=== PATIENT | female | born 1965 | race Caucasian/White ===

== ENCOUNTER 2024-11-24 18:49 | Emergency (ER) | payer OTHER, SELFPAY ==
--- NOTE | ~2024-11-24 | XR_ITS ---
CLINICAL HISTORY: shortness of breath EXAM: Two views of the chest. COMPARISON: None FINDINGS: Normal cardiac, mediastinal, and hilar contours. Normal heart size. No pleural effusion or pneumothorax. Lungs are clear. No acute bone finding. IMPRESSION: 1. No acute cardiopulmonary process demonstrated. This document has been electronically signed by: Gomez Bowles MD on 11/24/2024 19:27:01
[2024-11-24 18:53] VITALS: BP 171/95; PULSE 91; RESP 20; TEMP 36.8; O2SAT 99; BMI 31.0
--- NOTE | 2024-11-24 18:54 | ED.GENADULT ---
HPI - General Adult General Chief complaint: Dyspnea Stated complaint: lungs crackling something stuck in throat Time Seen by Provider: 11/24/24 19:27 Related Data Previous Rx's ?Medication ?Instructions ?Recorded doxycycline monohydrate 100 mg 100 mg PO BID 7 days #14 caps 11/24/24 capsule Allergies Allergy/AdvReac Type Severity Reaction Status Date / Time No Known Allergies Allergy Verified 11/24/24 18:55 [facility] Social History Social History (System 02/05/24 @ 12:30 by Angela Chamorro) Smoked in Last 30 Days: No Use of substances other than those prescribed or required for medical reasons: No Advance Directives: No Advance Directives Information Provided: No Do you have a plan to hurt others: No Plan Physical Exam ED Vital Signs: Vital Signs - 24 hr 11/24/24 18:53 11/24/24 20:17 Temperature 98.3 F Pulse Rate 91 90 Respiratory Rate 20 16 Blood Pressure 171/95 H 146/78 H Pulse Oximetry 99 100 Oxygen Delivery Method Room Air Room Air BMI result Body Mass Index 31.0 Course Course Course Narrative: RME, this is a rapid medical exam performed by Oliver Plunkett please refer to primary provider for complete H&P- 59-year-old female presents for evaluation of increasing shortness of breath for the last 2 weeks. She hears a crackling in her lungs and is concerned that she has flu. No fever Medical Decision Making Lab Data 11/24/24 19:31 11/24/24 19:31 Labs: Lab Results 11/24/24 11/24/24 Range/Units 19:31 19:36 WBC 5.9 (4.8-10.8) X10*3/uL RBC 4.08 L (4.20-5.50) X10*6/uL Hgb 12.7 (12.0-16.0) g/dl Hct 37.5 (37.0-47.0) % MCV 91.9 (80.0-98.0) fL MCH 31.1 (27.0-33.0) pg MCHC 33.9 (31.0-35.0) g/dl RDW 13.2 (11.0-16.0) % Plt Count 285 (160-400) X10*3/uL MPV 9.3 L (9.4-12.3) fL Immature Gran % (Auto) 0.2 (0.0-0.4) % Neut % (Auto) 65.2 (45-73) % Lymph % (Auto) 25.2 (20-40) % [place] % (Auto) 7.7 (2-11) % Eos % (Auto) 1.2 (0-4) % Baso % (Auto) 0.5 (0-2) % Lymph # (Auto) 1.5 (1.2-4.9) X10*3/uL [place] # (Auto) 0.5 (0.1-1.2) X10*3/uL Eos # (Auto) 0.1 (0.0-0.4) X10*3/uL Baso # (Auto) 0.0 (0.0-0.2) X10*3/uL Abs Immat Gran (auto) 0.01 (0.00-0.03) X10*3/uL Absolute Neuts (auto) 3.8 (2.0-8.3) x10*3/uL Absolute Nucleated RBC 0.000 (0.0-0.012) X10*3/uL Nucleated RBC % (auto) 0.0 (0.0-0.2) /100WBC Sodium 137 (135-145) mmol/L Potassium 4.2 (3.3-5.1) mmol/L Chloride 104 (96-108) mmol/L Carbon Dioxide 24 (22-29) mmol/L Anion Gap 13 (12-20) BUN 13 (9-16) mg/dL Creatinine 0.68 (0.5-1.4) mg/dL Estim Creat Clear Calc 76.8 Estimated GFR > 60 Random Glucose 161 H (60-115) mg/dL Calcium 8.9 (8.4-10.2) mg/dL Total Bilirubin 0.4 (0.0-1.0) mg/dL AST 62 H (5-31) U/L ALT 129 H (0-31) U/L Alkaline Phosphatase 149 H (39-117) U/L B-Natriuretic Peptide 17 (<100) pg/mL Total Protein 7.3 (6.5-8.0) g/dL Albumin 4.2 (3.5-5.0) g/dL Lipase 10 (8-78) U/L Influenza Type A (PCR) NEGATIVE (Negative) Influenza Type B (PCR) NEGATIVE (Negative) RSV RNA Qual (PCR) NEGATIVE (Negative) SARS-CoV-2 RNA (RT-PCR) NEGATIVE (Negative) S. pyogenes GrpA JUSTUS Negative (Negative) Discharge Plan Discharge Clinical Impression: Elevated LFTs, Bronchitis Patient Disposition: Home, Self-Care Additional Instructions: as we discussed your blood work was essentially normal your liver function tests were a little bit elevated, your blood sugar was also a tiny bit elevated you will need to check both blood sugar and liver function tests with your primary care physician or clinic. Your chest x-ray was normal we are going to treat you has a possible bronchitis with a p.o. antibiotic. Prescriptions: New doxycycline monohydrate 100 mg capsule 100 mg PO BID 7 Days Qty: 14 0RF Referrals: Physician,None [Primary Care Provider, Medical] Print Language: Syriac
[2024-11-24 19:40] LABS: MANUAL DIFF FLAG NO
[2024-11-24 19:41] LABS: Hematocrit 37.5 % (37.0-47.0); Hemoglobin 12.7 g/dl (12.0-16.0); Imm Gran Abs Auto 0.01 X10*3/uL (0.00-0.03); Imm Gran Pct Auto 0.2 % (0.0-0.4); Lymphocytes Absolute Auto 1.5 X10*3/uL (1.2-4.9); Mean Corpuscular HGB Conc 33.9 g/dl (31.0-35.0); Mean Corpuscular Hemoglobin 31.1 pg (27.0-33.0); Mean Corpuscular Volume 91.9 fL (80.0-98.0); NRBC Abs Auto 0.000 X10*3/uL (0.0-0.012); NRBC Pct Auto 0.0 /100WBC (0.0-0.2); Platelet Count 285 X10*3/uL (160-400); Red Blood Count 4.08 X10*6/uL (4.20-5.50); White Blood Count 5.9 X10*3/uL (4.8-10.8)
[2024-11-24 19:48] LABS: IDNOW Serial# 58CA691E; Strep A Nucleic Acid Negative (Negative)
[2024-11-24 19:58] LABS: Alanine Aminotransferase 129 U/L (0-31); Albumin Level 4.2 g/dL (3.5-5.0); Alkaline Phosphatase 149 U/L (39-117); Anion Gap 13 (12-20); Aspartate Amino Transferase 62 U/L (5-31); Blood Urea Nitrogen 13 mg/dL (9-16); Calcium 8.9 mg/dL (8.4-10.2); Carbon Dioxide 24 mmol/L (22-29); Chloride 104 mmol/L (96-108); Creatinine Clr Calc Pharmacy 76.8; Estimated Glomerular Filt Rate > 60; Lipase 10 U/L (8-78); Potassium 4.2 mmol/L (3.3-5.1); Sodium 137 mmol/L (135-145); Total Protein 7.3 g/dL (6.5-8.0)
[2024-11-24 20:03] LABS: B Type Natriuretic Peptide 17 pg/mL (<100)
--- NOTE | 2024-11-24 20:04 | ED.GENADULT ---
HPI - General Adult General Chief complaint: Dyspnea Stated complaint: lungs crackling something stuck in throat Time Seen by Provider: 11/24/24 19:27 Source: patient Mode of arrival: ambulatory Limitations: no limitations History of Present Illness HPI narrative: This is 59 years old the patient presented to the emergency department multiple complaint main complaint is generalized weakness, chills throat discomfort some shortness of breath and dry cough. Patient denies any major medical problems she does not smoke. No chest pain no exertional symptoms Onset (ago): week(s) (2) Radiation: non-radiation Severity: mild Quality: burning Relieving factors: none Exacerbating factors: none Associated symptoms: denies other symptoms Related Data Previous Rx's ?Medication ?Instructions ?Recorded doxycycline monohydrate 100 mg 100 mg PO BID 7 days #14 caps 11/24/24 capsule Allergies Allergy/AdvReac Type Severity Reaction Status Date / Time No Known Allergies Allergy Verified 11/24/24 18:55 Review of Systems Constitutional: Constitutional: Reports body ache(s), Reports fatigue and Reports malaise ENT: Reports system reviewed and no additional complaints, except as documented Respiratory: Respiratory: Reports as per HPI Endocrine: Endocrine: Reports fatigue [facility] Past Medical History Attestation statement: The following information was validated with the patient. [facility] Narrative: patient denies any major medical problems Social History Social History (System 02/05/24 @ 12:30 by Angela Chamorro) Smoked in Last 30 Days: No Use of substances other than those prescribed or required for medical reasons: No Advance Directives: No Advance Directives Information Provided: No Do you have a plan to hurt others: No Plan Physical Exam ED Vital Signs: Vital Signs - 24 hr 11/24/24 18:53 11/24/24 20:17 Temperature 98.3 F Pulse Rate 91 90 Respiratory Rate 20 16 Blood Pressure 171/95 H 146/78 H Pulse Oximetry 99 100 Oxygen Delivery Method Room Air Room Air BMI result Body Mass Index 31.0 on exam she looks well she is not toxic-appearing interactive she has stable vital signs Const General: cooperative Nutritional Appearance: average body habitus Orientation/consciousness: patient oriented x3 HENMT Head: Yes normal to inspection General nose exam: Normal external nose present Face and sinus: Yes normal facial exam Mouth: Normal oral and palatal mucosa present Throat: Yes posterior oropharynx normal Neck Neck: Yes normal visual inspection Chest Chest palpation & inspection: normal inspection of the chest Resp Effort & Inspection: normal respiratory effort Cardio Jugular venous distension: no JVD Rate: regular rate Rhythm: regular rhythm GI Inspection: Yes normal to inspection Palpation (GI): Soft to palpation, not firm and nontender Auscultation: normal bowel sounds General: Yes no CVA tenderness Back/Spine/Pelvis Back: no CVA tenderness Neuro General: patient oriented x3 Cranial nerves: Yes CN's II-XII intact bilaterally Course Reevaluation(s) Reevaluation #1: patient remained stable in not acute distress vital signs normal including O2 sat 100 % temperature of 98.3 degrees. Labs reviewed normal white count negative viral panel. She does have elevated LFT I discussed this with the patient she understands she will need follow-up also discussed the elevated blood sugar she understands she needs a follow-up Time: 20:50 Medical Decision Making Medical Decision Making [facility] Narrative: patient is here with multiple complaints including weakness throat pain she is we will check blood work we will do a chest x-ray check viral panel. Clinical picture no consistent with ACS she has no chest pain, no consistent with pulmonary edema/congestive heart failure she has no orthopnea no JVD, no consistent with pulmonary emboli she has no risks factor she is satting 99% pulse 91 Differential Diagnosis Differential Diagnoses: The differential diagnosis associated with the presentation includes viral syndrome/pneumonia/covid 19 Admission/Observation Consideration of admission/observation: Escalation of care including admission/observation considered Lab Data MDM Lab Attestation statement: I reviewed the patient's lab results. 11/24/24 19:31 11/24/24 19:31 Labs: Lab Results 11/24/24 11/24/24 Range/Units 19:31 19:36 WBC 5.9 (4.8-10.8) X10*3/uL RBC 4.08 L (4.20-5.50) X10*6/uL Hgb 12.7 (12.0-16.0) g/dl Hct 37.5 (37.0-47.0) % MCV 91.9 (80.0-98.0) fL MCH 31.1 (27.0-33.0) pg MCHC 33.9 (31.0-35.0) g/dl RDW 13.2 (11.0-16.0) % Plt Count 285 (160-400) X10*3/uL MPV 9.3 L (9.4-12.3) fL Immature Gran % (Auto) 0.2 (0.0-0.4) % Neut % (Auto) 65.2 (45-73) % Lymph % (Auto) 25.2 (20-40) % [place] % (Auto) 7.7 (2-11) % Eos % (Auto) 1.2 (0-4) % Baso % (Auto) 0.5 (0-2) % Lymph # (Auto) 1.5 (1.2-4.9) X10*3/uL [place] # (Auto) 0.5 (0.1-1.2) X10*3/uL Eos # (Auto) 0.1 (0.0-0.4) X10*3/uL Baso # (Auto) 0.0 (0.0-0.2) X10*3/uL Abs Immat Gran (auto) 0.01 (0.00-0.03) X10*3/uL Absolute Neuts (auto) 3.8 (2.0-8.3) x10*3/uL Absolute Nucleated RBC 0.000 (0.0-0.012) X10*3/uL Nucleated RBC % (auto) 0.0 (0.0-0.2) /100WBC Sodium 137 (135-145) mmol/L Potassium 4.2 (3.3-5.1) mmol/L Chloride 104 (96-108) mmol/L Carbon Dioxide 24 (22-29) mmol/L Anion Gap 13 (12-20) BUN 13 (9-16) mg/dL Creatinine 0.68 (0.5-1.4) mg/dL Estim Creat Clear Calc 76.8 Estimated GFR > 60 Random Glucose 161 H (60-115) mg/dL Calcium 8.9 (8.4-10.2) mg/dL Total Bilirubin 0.4 (0.0-1.0) mg/dL AST 62 H (5-31) U/L ALT 129 H (0-31) U/L Alkaline Phosphatase 149 H (39-117) U/L B-Natriuretic Peptide 17 (<100) pg/mL Total Protein 7.3 (6.5-8.0) g/dL Albumin 4.2 (3.5-5.0) g/dL Lipase 10 (8-78) U/L Influenza Type A (PCR) NEGATIVE (Negative) Influenza Type B (PCR) NEGATIVE (Negative) RSV RNA Qual (PCR) NEGATIVE (Negative) SARS-CoV-2 RNA (RT-PCR) NEGATIVE (Negative) S. pyogenes GrpA JUSTUS Negative (Negative) Radiology Impression Discussion of test interpretation with radiology: I have reviewed the radiologist's reading. Radiologist Impression: EXAM: Two views of the chest. COMPARISON: None FINDINGS: Normal cardiac, mediastinal, and hilar contours. Normal heart size. No pleural effusion or pneumothorax. Lungs are clear. No acute bone finding. IMPRESSION: 1. No acute cardiopulmonary process demonstrated. This document has been electronically signed by: Gomez Bowles MD on 11/24/2024 19:27:01 Dictated By: Gomez Bowles MD Signed By: <Electronically signed by Gomez Bowles MD in OV> Discharge Plan Discharge Clinical Impression: Elevated LFTs, Bronchitis Patient Disposition: Home, Self-Care Additional Instructions: as we discussed your blood work was essentially normal your liver function tests were a little bit elevated, your blood sugar was also a tiny bit elevated you will need to check both blood sugar and liver function tests with your primary care physician or clinic. Your chest x-ray was normal we are going to treat you has a possible bronchitis with a p.o. antibiotic. Prescriptions: New doxycycline monohydrate 100 mg capsule 100 mg PO BID 7 Days Qty: 14 0RF Referrals: Physician,None [Primary Care Provider, Medical] Print Language: Jamaican
[2024-11-24 20:17] VITALS: BP 146/78; PULSE 90; RESP 16; O2SAT 100
[2024-11-24 20:18] LABS: Resp Syncy Virus RNA Qual PCR NEGATIVE (Negative); SARS COV2 PCR INHOUSE NEGATIVE (Negative)
[2024-11-24 20:54] VITALS: BP 146/78; PULSE 90; RESP 16; TEMP -17.7; TEMP 0; O2SAT 100
== END 2024-11-24 20:55 | disposition home or self-care (01) ==
PROVIDERS: Physician Assistant; Emergency Provider Emergency Medicine
DX: J40 Bronchitis, not specified as acute or chronic (principal); R79.89 Other specified abnormal findings of blood chemistry; Z03.818 Encounter for observation for suspected exposure to other biological agents ruled out; R05.9 Cough, unspecified; R06.02 Shortness of breath
CPT/HCPCS: 71046; 80053; 83690; 83880; 85025; 87637; 87651; 99283; 99284

== ENCOUNTER → 2024-11-24 18:54 | Outpatient (BNV) | payer OTHER, SELFPAY | PROVIDERS: Emergency Provider Emergency Medicine; Visit Provider Radiology Diagnostic Radiology | DX: R06.02 Shortness of breath (principal) | CPT/HCPCS: 71046 ==